=== PATIENT | male | born 1950 | race Hispanic/Latino ===

== ENCOUNTER 2016-09-18 06:02 | Day surgery (SDC) | payer MEDICARE ==
[2016-09-14 11:51] VITALS: BMI 36.7
[2016-09-18 07:05] LABS: BASO # 0.03 K/mm3 (0.0-2.0); BASO % 0.5 % (0.0-3.0); EOS # 0.3 (0.0-0.7); EOS % 4.6 % (1.5-5.0); GRAN # 3.77 (1.4-6.5); GRAN % 57.8 % (50.0-68.0); HEMOGLOBIN 14.7 g/dL (14.0-18.0); LYMPH # 1.9 (1.2-3.4); LYMPH % 29.3 % (22.0-35.0); MEAN CELL VOLUME 87.2 fl (80.0-105.0); MEAN CORPUSCULAR HEMOGLOBIN 29.8 pg (25.0-35.0); MEAN CORPUSCULAR HGB CONC 34.1 g/dl (31.0-37.0); MEAN PLATELET VOLUME 10.9 fl (7.0-11.0); MONO # 0.5 (0.1-0.6); MONO % 7.8 % (1.0-6.0); PLATELET COUNT 128 10^3/uL (120.0-450.0); RBC 4.94 10^6/uL (3.5-6.1); RED CELL DISTRIBUTION WIDTH 13.9 % (11.5-14.5); WHITE BLOOD COUNT 6.5 10^3/ul (4.5-11.0)
[2016-09-18 07:12] LABS: BLOOD UREA NITROGEN 18 mg/dL (7-21); CALCIUM 9.4 mg/dL (8.4-10.5); GFR AFRICAN-AMERICAN > 60; GFR NON-AFRICAN AMERICAN > 60
[2016-09-18 07:20] LABS: INR 1.01 (0.93-1.08); PROTHROMBIN TIME 10.9 Seconds (9.9-11.8)
[2016-09-18] MEDS ORDERED: Lidocaine 2% Inj (20ml) ONE (08:42)
[2016-09-18] MEDS ORDERED: Iohexol 350mgl/ml 50 ML ONE (08:43)
[2016-09-18] MEDS ORDERED: Iodixanol 320 MG/ML 100 ML BOTTLE IV ONE (08:43)
[2016-09-18] MEDS ORDERED: Midazolam 2 MG/2 ML VIAL ONE ×2 (08:43→09:12)
[2016-09-18] MEDS ORDERED: Iodixanol 320 MG/ML 200 ML BOTTLE IV ONE (08:43)
[2016-09-18] MEDS ORDERED: Sodium Chloride 0.9% 1,000 ML IV SCH (09:45)
[2016-09-18 10:03] VITALS: TEMP 97.8
[2016-09-18 11:59] VITALS: O2SAT 98
[2016-09-18 13:04] VITALS: BP 152/87; PULSE 58; RESP 18
--- NOTE | 2016-09-18 14:55 | CARDCATH ---
PROCEDURE DATE: 09/18/2016 HISTORY: The patient is a 66-year-old male with multiple cardiac risk factors including diabetes mellitus, hypertension and hypercholesterolemia who presents with an abnormal stress test. The patient is status post PTCA and stent of an LAD in the past. Because of this, cardiac catheterization was recommended. PROCEDURE: Left heart catheterization with coronary angiography and left ventriculogram. The right femoral artery was cannulated with a 6-[place] sheath. There were no complications. The findings on catheterization revealed a right dominant circulation. The RCA revealed diffuse intimal irregularities without critical lesions. The left main artery was unremarkable. The LAD and diagonal vessels revealed intimal irregularities without critical lesions. The circumflex artery was a large vessel and was free of significant disease. LV function was preserved with an EF of approximately 50-55%. The patient tolerated the procedure well. Angio-Seal was used to close the femoral artery site. In summary, the procedure revealed nonobstructive CAD with preserved LV function. Given these findings, the patient will need to continue his cardiac risk reduction program. Aurelio Soliz MD
--- NOTE | 2016-09-18 23:44 | CARD ---
APPROVED REPORT EKG Measurement Heart [id number] <Conclusion> Sinus rhythm with 1st degree AV block with premature atrial complexes Left axis deviation Abnormal ECG
== END 2016-09-18 16:00 | disposition home or self-care (01) ==
LOC: CATH 06:02
PROVIDERS: ATTEND Internal Medicine Cardiovascular Disease
DX: I25.10 Atherosclerotic heart disease of native coronary artery without angina pectoris (principal); I10 Essential (primary) hypertension; E78.00 Pure hypercholesterolemia, unspecified; E11.9 Type 2 diabetes mellitus without complications